=== PATIENT | male | born 1980 | race Caucasian/White ===

== ENCOUNTER 2019-10-05 15:45 | Outpatient (CLI) | payer OTHER ==
--- NOTE | 2019-10-05 18:06 | MRI Report ---
PROCEDURE: Lumbar Spine W/O INDICATIONS: LOW BACK PAIN TECHNIQUE: Noncontrast sagittal T1 spin echo and T2 fast echo, sagittal STIR, axial T1 and T2 fast spin echo thr ough the lumbar spine. In cases with scoliosis, additional coronal T2 fast spin echo may be performe d. In this patient, oblique coronal T1 weighted and STIR images were obtained through the sacrum. COMPARISON: None. FINDINGS: Image quality: Excellent. Alignment and Curvature: There is overall straightening of the normal lumbar lordosis. No significa nt AP alignment abnormality can be seen. Bone Marrow: Marrow is of normal overall signal. No acute vertebral body compression fractures. Spinal Cord: Conus medullaris terminates at the T12-L1 level. Visualized cord demonstrates normal s ignal and size. Paraspinous Soft Tissues: No paravertebral masses. T12-L1: Normal in appearance. L1-L2: Normal in appearance. L2-L3: Normal in appearance. L3-L4: Normal in appearance. L4-L5: Mild loss of disc height and disc signal are seen. Mild disc bulge is seen, with a central/r ight disc protrusion, as on series 801 image 15. Mild facet hypertrophy is seen. Moderate bilateral neuroforaminal narrowing is seen, right worse than left. Mild to moderate central canal narrowing is seen. L5-S1: Mild to moderate loss of disc height and disc signal are seen. Mild to moderate disc bulge i s seen, with a superimposed central/left disc extrusion, as on series 501 image 6 and on series 801 i mage 9. Moderate to severe central canal narrowing is seen. Mass effect is seen, including upon the t ransiting left L5 and S1 nerve roots. There is at least moderate bilateral neuroforaminal narrowing seen. A minimal degree of compression can be seen upon the exiting L5 nerve roots. Dedicated images of the sacrum were acquired and demonstrate no significant abnormality. There is not e made of transitional lumbar anatomy, with a partially sacralized L5 level. IMPRESSION: L5-S1, there is a central/left disc extrusion, with mass effect upon the regional nerve roots. Reviewed by: Bonifacio Romero MD on 10/05/2019 5:04 PM [facility] Approved by: Bonifacio Romero MD on 10/05/2019 5:04 PM [facility] Station ID: [id number]
== END 2019-10-05 15:46 | disposition home or self-care (01) ==
LOC: DI 15:45
PROVIDERS: ATTEND Student in an Organized Health Care Education/Training Program
DX: M51.26 Other intervertebral disc displacement, lumbar region (principal); M51.27 Other intervertebral disc displacement, lumbosacral region; M99.83 Other biomechanical lesions of lumbar region; M48.061 Spinal stenosis, lumbar region without neurogenic claudication; M48.07 Spinal stenosis, lumbosacral region
CPT/HCPCS: 72148

== ENCOUNTER 2020-07-09 22:20 | Emergency (ER) | payer OTHER ==
--- NOTE | 2020-07-09 23:21 | ED Physician Documentation ---
PD HPI HEENT - Stated complaint Stated Complaint: FACE PAIN - Chief complaint Chief Complaint: Wound - History obtained from History obtained from: Patient - History of Present Illness Timing - onset: Yesterday Timing - details: Gradual onset, Constant Pain level now: 4 Location: Other (left side of face (see diagram under exam)) Associated symptoms: Facial swelling. No: Fever, Trismus Similar symptoms before: Has not had sx before Recently seen: Not recently seen - Additional information Additional information: c/o atraumatic painful swelling left cheek which gradually has spread to left mandible and towards left ear. denies h/o similar symptoms Review of Systems Constitutional: reports: Reviewed and negative Ears: denies: Ear pain Nose: denies: Congestion Skin: reports: Rash PD PAST MEDICAL HISTORY - Past Medical History Past Medical History: No - Present Medications Home Medications: Ambulatory Orders Medication Instructions Recorded Confirmed Doxycycline Hyclate [Vibramycin] 100 mg PO BID #[id number] 07/09/20 - Allergies Allergies/Adverse Reactions: Allergies Allergy/AdvReac Type Severity Reaction Status Date / Time No Known Drug Allergies Allergy Verified 07/09/20 22:28 - Living Situation Living Arrangement: reports: At home PD ED PE NORMAL - Vitals Vital signs reviewed: Yes - General General: Alert and oriented X 3, No acute distress, Well developed/nourished - Neck Neck: Supple, no meningeal sign PD ED PE EXPANDED - HEENT HEENT Visual: 1 - swelling, tenderness 2 - rash (faint, confluent erythema with midly increased warmth to touch) Results - Vitals Vitals: Vital Signs - 24 hr 07/09/20 07/09/20 22:26 23:48 Temperature 36.7 C Heart Rate 83 80 Respiratory 16 16 Rate Blood Pressure 154/83 H 133/74 H O2 Saturation 98 98 Oxygen O2 Source Room air PD MEDICAL DECISION MAKING - ED course Complexity details: considered differential, d/w patient ED course: very small (<1 cm diameter) tender nodule on left side of face s/o small/early abscess, with surrounding area of faint erythema that is confluent but not raised s/o adjacent early cellulitis. will treat with doxycycline, anticipate improvement within 48 hours of first dose Departure - Departure Disposition: 01 Home, Self Care Clinical Impression: Facial cellulitis Condition: Good Instructions: ED Cellulitis Facial Prescriptions: Doxycycline Hyclate [Vibramycin] 100 mg PO BID #[id number] Comments: Follow up with your primary care provider in 3-5 days for recheck of the infection Discharge Date/Time: 07/09/20 23:48
[2020-07-09] MEDS ORDERED: DOXYCYCLINE 100 MG TABLET PO STA (23:38)
[2020-07-09 23:49] VITALS: BP 133/74
== END 2020-07-09 23:48 | disposition home or self-care (01) ==
LOC: ED 22:20
DX: L03.211 Cellulitis of face (principal)
CPT/HCPCS: 99282; 99283; A9270